=== PATIENT | female | born 1990 | race Caucasian/White ===

== ENCOUNTER 2021-11-29 10:44 | Day surgery (SDC) | payer BC ==
[2021-11-12 10:28] VITALS: BMI 27.4
--- NOTE | 2021-11-29 07:26 | P.GSHP ---
History of Present Illness H&P Date: 11/29/21 CHIEF COMPLAINT: Cholecystitis HISTORY OF PRESENT ILLNESS: The patient is a 31-year-old female who presents with history of epigastric including right upper quadrant abdominal pain. She underwent diagnostic studies for her gallbladder. Separately her clinical picture was consistent with cholecystitis. Now she presents for surgical intervention. PAST MEDICAL HISTORY: Please see list PAST SURGICAL HISTORY: Please see list MEDICATIONS: Please see list ALLERGIES: Please see list SOCIAL HISTORY: Please see list FAMILY HISTORY: Please see list REVIEW OF ORGAN SYSTEMS: CONSTITUTIONAL: No reports of fevers or chills. HEENT: Denies any troubles with the vision or hearing. ENDOCRINE: No reports of hypothyroidism. No diabetes. RESPIRATORY: No recent pneumonias. CARDIOVASCULAR: Denies chest pain or palpitations GI: No blood in stools or constipation. MUSCULOSKELETAL: Has occasional joint pain including back pain. NEURO: No seizure disorders or headaches. No recent stroke. PSYCH: No depression or suicidal ideation. GENITOURINARY: No active blood in urine. No urinary hesitancy. HEMATOLOGIC: No personal or family history of DVTs or pulmonary emboli. SKIN: No skin cancer. PHYSICAL EXAM: VITAL SIGNS: Afebrile vital signs stable GENERAL: Well-developed pleasant in no acute distress. HEENT: No scleral icterus. Extraocular movements grossly intact. Moist buccal mucosa. NECK: Supple without lymphadenopathy. CHEST: Unlabored respirations. Equal bilateral excursions. CARDIOVASCULAR: Regular rate regular rhythm rhythm. Distal 2+ pulses. ABDOMEN: Soft, nondistended. Tender along the epigastrium and right upper quadrant. MUSCULOSKELETAL: No clubbing, cyanosis, or edema. NEURO: Cranial nerves II to XII within normal limits. No focal or lateralizing signs. PSYCH: Alert and oriented to person, place and time. SKIN: Well-perfused good skin turgor. ASSESSMENT: 1. Epigastric and right upper quadrant abdominal pain 2. Chronic cholecystitis 3. Symptomatic gallstones. PLAN: 1. Will need a robotic cholecystectomy possible open. Benefits and risks were described. 2. Heparin for DVT prophylaxis 5000 units. 3. Antibiotic prophylaxis. Past Medical History Past Medical History: GERD/Reflux Additional Past Medical History / Comment(s): palpitations, "overactive gallbladder", History of Any Multi-Drug Resistant Organisms: None Reported Additional Past Surgical History / Comment(s): EGD x 2 Past Anesthesia/Blood Transfusion Reactions: Family History of Problems w/ Anesthesia Additional Past Anesthesia/Blood Transfusion Reaction / Comment(s): mom and sister PONV Past Psychological History: No Psychological Hx Reported Smoking Status: Never smoker Past Alcohol Use History: None Reported Past Drug Use History: None Reported - Past Family History Mother Family Medical History: No Reported History Medications and Allergies Home Medications Medication Instructions Recorded Confirmed Type Multivitamins, Thera [Multivitamin 1 tab PO DAILY 11/12/21 11/25/21 History (formulary)] Norethindrone-E.estradiol-Iron 1 each PO QAM 11/12/21 11/12/21 History [Aurovela 24 Fe 1 mg-20 Mcg Tab] Omeprazole [PriLOSEC] 40 mg PO DAILY 11/12/21 11/12/21 History Cholecalciferol [Vitamin D3 (25 25 mcg PO DAILY 11/25/21 11/25/21 History Mcg = 1000 Iu)] Loratadine [Alavert] 10 mg PO DAILY 11/25/21 11/25/21 History Magnesium 400 mg PO DAILY 11/25/21 11/25/21 History Allergies Allergy/AdvReac Type Severity Reaction Status Date / Time latex Allergy red Verified 11/25/21 12:14 irritated skin Penicillins Allergy Rash/Hives Verified 11/25/21 12:14
[~2021-11-29 10:44] MED LIST: ACETAMINOPHEN TAB 500 MG TAB PO STA; DEXAMETHASONE SOD PHOSPHATE 4 MG/ML 1 ML VIAL IV ONE; GABAPENTIN 300 MG CAP PO STA; HEPARIN SODIUM,PORCINE/PF 5,000 UNIT/0.5 ML SYRINGE SQ PRN; HYDROmorphone 0.5 MG/0.5 ML SYRINGE IVP PRN; INDOCYANINE GREEN 25 MG VIAL IV STA; LACTATED RINGERS 1,000 ML IV SCH; MELOXICAM 7.5 MG TAB PO SCH; ONDANSETRON 4 MG/2 ML VIAL IVP ONE; SCOPOLAMINE 1.5MG/72HR PATCH TRANSDERM STA
[2021-11-29] MEDS ORDERED: MIDAZOLAM 2 MG/2 ML VIAL IV ONE (11:40)
[2021-11-29 11:52] LABS: Basophils % (A) 0 %; Eosinophils % (A) 0 %; HGB 12.8 gm/dL (11.4-16.0); Lymphocytes # (A) 1.3 k/uL (1.0-4.8); Lymphocytes % (A) 13 %; MCH 29.1 pg (25.0-35.0); MCHC 33.8 g/dL (31.0-37.0); MCV 86.2 fL (80.0-100.0); Mean Platelet Volume 7.2; Monocytes # (A) 0.3 k/uL (0-1.0); Monocytes % (A) 3 %; Neutrophils # (A) 8.3 k/uL (1.3-7.7); Neutrophils % (A) 82 %; Platelet Count 255 k/uL (150-450); RBC 4.41 m/uL (3.80-5.40); RDW 14.1 % (11.5-15.5); WBC 10.1 k/uL (3.8-10.6)
[2021-11-29 12:05] LABS: ALT 17 U/L (4-34); AST 22 U/L (14-36); African American GFR (CKD) >90 (>60 ml/min/1.73 sqM); Albumin 4.1 g/dL (3.5-5.0); Alkaline Phosphatase 57 U/L (38-126); Anion Gap 8 mmol/L; Blood Urea Nitrogen 11 mg/dL (7-17); Calcium 9.4 mg/dL (8.4-10.2); Carbon Dioxide 23 mmol/L (22-30); Chloride 107 mmol/L (98-107); Glucose 99 mg/dL (74-99); Non-African American GFR(CKD) 85 (>60 ml/min/1.73 sqM); Sodium 138 mmol/L (137-145); Total Bilirubin 0.5 mg/dL (0.2-1.3); Total Protein 7.2 g/dL (6.3-8.2)
[2021-11-29] MEDS ORDERED: MIDAZOLAM 2 MG/2 ML VIAL ONE (12:27)
[2021-11-29] MEDS ORDERED: diphenhydrAMINE 50 MG/ML 1 ML VIAL ONE (12:27)
[2021-11-29] MEDS ORDERED: HYDROmorphone (PF) 1 MG/ML ONE (12:27)
[2021-11-29] MEDS ORDERED: DEXAMETHASONE SOD PHOSPHATE 4 MG/ML 1 ML VIAL ONE (12:27)
[2021-11-29] MEDS ORDERED: PROPOFOL 10 MG/ML 20 ML VIAL IV ONE (12:27)
[2021-11-29] MEDS ORDERED: fentaNYL (PF) 50 MCG/ML 2 ML AMP ONE (12:27)
[2021-11-29] MEDS ORDERED: LIDOCAINE 1% INJ 10MG/ML (20 ML MDV) ONE (12:27)
[2021-11-29] MEDS ORDERED: ROCURONIUM 10 MG/ML (5 ML VIAL) IV ONE (12:27)
[2021-11-29] MEDS ORDERED: INDOCYANINE GREEN 25 MG VIAL IV ONE (12:27)
[2021-11-29] MEDS ORDERED: BUPIVACAIN-EPI 0.25%-1:200,000 30 ML VIAL SQ ONE ×2 (12:41→12:46)
[2021-11-29] MEDS ORDERED: LACTATED RINGERS 1,000 ML IV ONE (12:55)
[2021-11-29 13:32] VITALS: TEMP 97.6
[2021-11-29 14:12] VITALS: RESP 16
[2021-11-29 14:58] VITALS: BP 124/82; PULSE 85
--- NOTE | 2021-12-05 11:23 | P.OP ---
Date of Procedure: 11/29/21 Description of Procedure: SURGEON: JO RODRIGUEZ MD PREOPERATIVE DIAGNOSES: 1. Chronic cholecystitis 2. Gastroesophageal reflux disease POSTOPERATIVE DIAGNOSES: 1. Chronic cholecystitis 2. Gastroesophageal reflux disease 3. Peritoneal adhesions, right upper quadrant OPERATION: 1. Robotic-assisted da Isabelle Xi laparoscopic lysis of adhesions 2. Robotic-assisted da Isabelle Xi laparoscopic cholecystectomy, multiport with FIREFLY ESTIMATED BLOOD LOSS: 5 mL. SPECIMENS REMOVED: Gallbladder. COMPLICATIONS: None. OPERATIVE FINDINGS: 1. Scarring over gallbladder with peritoneal adhesions, pericholecystic with features of chronic cholecystitis INDICATIONS: The patient is a 31-year-old female who presents with symptomatic gallstones. Robotic assisted laparoscopic approach was described. Benefits and risks of the procedure including but not limited to bleeding, infection, injury to the biliary tree was described. Informed consent was obtained. DESCRIPTION OF PROCEDURE: Patient was brought to the operating room, placed in supine position. After general induction, the abdomen had been prepped and draped in standard sterile fashion. The robotic da Isabelle XI system was primed. After a timeout protocol was performed, the patient had been prepped and draped in standard sterile fashion. The patient was injected with indocyanine green. A 5 mm 0 degrees laparoscopic trocar entry was performed along the left upper quadrant. The abdomen insufflated to 15 mmHg pressure which was tolerated well. Diagnostic laparoscopy demonstrated no injury to bowel viscera or mesentery. The liver surface was unremarkable. Next, two 8 mm robotic ports were placed along the right upper abdomen. The camera 8-mm port was maintained along the epigastrium. Another 8 mm port was placed along the left upper abdominal wall after exchanging the 5 mm port. Please note that the ports were placed at least 10 to 15 cm away from the target anatomy of the gallbladder. The robot was docked along the left lateral abdomen. The patient was repositioned in reverse Trendelenburg position. Using a grasper for arm 3, a grasper for arm 4, including hook cautery for arm 1, the robotic system was docked and primed as described. Instruments were interchanged by the assistant director of public works including hook cautery, Bovie cautery and clip appliers. I had sat at the console. The gallbladder was scarred with peritoneal adhesions. Lysis of adhesions was performed to free the gallbladder from the surrounding tissues. Next attention was brought to the infundibulum and cystic structures. The infundibulum and cystic duct were dissected free from surrounding tissues. The cystic duct was isolated. FIREFLY was used to identify the cystic artery and cystic structures. A critical view of safety was obtained. Large PLASTIC clips were used throughout the entire case. Using a clip naval aircrewman avionics, 2 clips were placed at the junction of the infundibulum and cystic duct. The cystic duct was divided between clips. Next, the cystic artery was similarly clipped and cauterized. Electro-Bovie cautery was used to remove the gallbladder from the hepatic fossa. Hemostasis was checked and found to be adequate. The robot was undocked. I re-scrubbed into the case. Using a 10 mm Endo Catch bag via the left upper quadrant incision, the specimen was removed from the abdominal cavity. All pneumoperitoneum instruments were evacuated from the abdominal cavity. The incisions were reapproximated using 4-0 Monocryl in an interrupted subcuticular fashion. Fascial defects were less than 8 mm in size. Please note along the trocar sites, local anesthetic was placed as a field block prior to insertion of all instruments. Liquid glue was applied to the skin. At the end of the procedure needle, sponge, and instrument count had been verified correct by the surgical nurse. The patient was transferred to postanesthesia care unit in stable condition. Intraoperative films were shared with the patient's family. Plan - Discharge Summary Discharge Rx Participant: Yes New Discharge Prescriptions: New Simethicone [Gas-X] 125 mg PO AC-TID PRN #20 capsule PRN Reason: Pain Ibuprofen [Motrin] 600 mg PO Q8HR PRN #30 tab PRN Reason: Pain Acetaminophen Tab [Tylenol Tab] 1,000 mg PO Q6HR PRN #30 tablet PRN Reason: Pain Continue Norethindrone-E.estradiol-Iron [Aurovela 24 Fe 1 mg-20 Mcg Tab] 1 each PO QAM Multivitamins, Thera [Multivitamin (formulary)] 1 tab PO DAILY Omeprazole [PriLOSEC] 40 mg PO DAILY Loratadine [Alavert] 10 mg PO DAILY Cholecalciferol [Vitamin D3 (25 Mcg = 1000 Iu)] 25 mcg PO DAILY Magnesium 400 mg PO DAILY Discharge Medication List Multivitamins, Thera [Multivitamin (formulary)] 1 tab PO DAILY 11/12/21 [History] Norethindrone-E.estradiol-Iron [Aurovela 24 Fe 1 mg-20 Mcg Tab] 1 each PO QAM 11/12/21 [History] Omeprazole [PriLOSEC] 40 mg PO DAILY 11/12/21 [History] Cholecalciferol [Vitamin D3 (25 Mcg = 1000 Iu)] 25 mcg PO DAILY 11/25/21 [History] Loratadine [Alavert] 10 mg PO DAILY 11/25/21 [History] Magnesium 400 mg PO DAILY 11/25/21 [History] Acetaminophen Tab [Tylenol Tab] 1,000 mg PO Q6HR PRN #30 tablet 11/29/21 [Rx] Ibuprofen [Motrin] 600 mg PO Q8HR PRN #30 tab 11/29/21 [Rx] Simethicone [Gas-X] 125 mg PO AC-TID PRN #20 capsule 11/29/21 [Rx] Follow up Appointment(s)/Referral(s): Jo Rodriguez MD [STAFF PHYSICIAN] - 12/05/21 (Telehealth available) Patient Instructions/Handouts: *[facility] - Managing Your Pain After Surgery Without Opioids, *[facility] - (Anesthesia) Discharge Instructions Outpatient Surgery, *[facility] - Scopalamine Patch Instructions, Low Fat Diet (DC), Laparoscopic Cholecystectomy (GEN) Activity/Diet/Wound Care/Special Instructions: Recommend low-fat diet for the next 2 days. No lifting over 10 pounds in 2 weeks until Dec 13, 2021. May shower. No bath tub soaks for two weeks until Dec 13, 2021. Diet as tolerated. Use Tylenol, simethicone and ibuprofen or Aleve scheduled for the next 24-48 hours for best pain relief. Use ice along incisions for today to prevent swelling. Discharge Disposition: HOME SELF-CARE
== END 2021-11-29 15:31 | disposition home or self-care (01) ==
LOC: OR 10:44
PROVIDERS: ATTEND Surgery Plastic and Reconstructive Surgery
DX: K81.1 Chronic cholecystitis (principal); K21.9 Gastro-esophageal reflux disease without esophagitis; K66.0 Peritoneal adhesions (postprocedural) (postinfection)
CPT/HCPCS: 47562; 49329; S2900; 80053; 81025; 85025; 88304

== ENCOUNTER → 2023-03-06 | Outpatient (CLI) | payer BC ==
--- NOTE | 2023-03-06 10:15 | US ---
EXAMINATION TYPE: US abdomen complete DATE OF EXAM: 03/06/2023 COMPARISON: NONE CLINICAL HISTORY: R10.84, R10.2. Increasing right upper quadrant pain TECHNIQUE: Multiple sonographic images of the abdomen are obtained. FINDINGS: EXAM MEASUREMENTS: Liver Length: 10.9 cm Gallbladder Wall: -- cm CBD: 0.4 cm Spleen: 9.4 cm Right Kidney: 10.1 x 3.9 x 4.8 cm Left Kidney: 10.4 x 4.3 x 3.8 cm DIRECTOR STYLE NOTES: Slightly limited by overlying bowel gas, mainly on the left abdomen Pancreas: wnl Liver: Subtle hypoechoic mass left lobe vs. heterogeneous tissue. 2.1 x 2.6 x 3.0cm Gallbladder: Not visualized CBD: wnl Spleen: wnl Right Kidney: Echogenic foci lower pole cortex 3mm Left Kidney: wnl Upper IVC: wnl Abd Aorta: wnl Subtle possible hypoechoic mass within the left hepatic lobe measuring 3.0 x 2.6 x 2.1 cm. There is i nternal color-flow venous region. Gallbladder is not visualized. Correlate with surgical history. Com mon bile duct is within normal limits. The spleen is within normal limits. The visualized portions of the upper IVC and abdominal aorta are within normal limits. No hydronephrosis. Nonobstructive 3 mm c alculus within the inferior pole of the right kidney. No solid mass within either kidney. IMPRESSION: 1. Subtle possible hypoechoic mass versus heterogenous tissue within the left hepatic lobe. Further evaluation with CT or MR abdomen liver mass protocol is recommended. 2. Nonobstructive right renal calculus.
--- NOTE | 2023-03-06 10:30 | US ---
EXAMINATION TYPE: US pelvic complete DATE OF EXAM: 03/06/2023 COMPARISON: NONE CLINICAL HISTORY: R10.84, R10.2. TECHNIQUE: Transabdominal sonographic images of the pelvis were acquired. Date of LMP: 02/28/2023 EXAM MEASUREMENTS: Uterus: 6.6 x 3.0 x 2.7 cm Endometrial Stripe: 0.6 cm Right Ovary: 2.9 x 2.7 x 2.4 cm Left Ovary: 2.0 x 1.9 x 1.3 cm 1. Uterus: Anteverted wnl 2. Endometrium: wnl 3. Right Ovary: wnl 4. Left Ovary: wnl 5. Bilateral Adnexa: wnl 6. Posterior cul-de-sac: wnl The anteverted uterus and endometrium are within normal limits. Both ovaries appear unremarkable. No free fluid. IMPRESSION: Unremarkable pelvic ultrasound.
== END | disposition home or self-care (01) ==
LOC: RADUSWWP 09:00
PROVIDERS: ATTEND Family Medicine
DX: N20.0 Calculus of kidney (principal); R10.2 Pelvic and perineal pain
CPT/HCPCS: 76700; 76856

== ENCOUNTER → 2023-03-13 | Outpatient (CLI) | payer BC ==
--- NOTE | 2023-03-13 10:46 | CT ---
EXAMINATION TYPE: CT abdomen wo/w con CT DLP: 1064.3 mGycm, Automated exposure control for dose reduction was used. DATE OF EXAM: 03/13/2023 9:27 AM COMPARISON: Abdominal ultrasound 03/06/2023, pelvic ultrasound 03/06/2023. CLINICAL INDICATION:Female, 32 years old with history of K76.89; RUQ PAIN TECHNIQUE: Standard CT of the abdomen was performed before and after the uneventful administration of 100 mL of Isovue-300 intravenously. Oral contrast was administered.. Delayed imaging was performed . Coronal and sagittal reformats were performed. FINDINGS: LOWER CHEST: Unremarkable ABDOMEN LIVER: There is a 3.9 x 2.2 cm sagittally arterial homogeneously enhancing lesion within segment 2 co rresponding to ultrasound. This is isoattenuating with the surrounding parenchyma on the noncontrast, portal venous, and delayed phases. GALLBLADDER AND BILE DUCTS: The gallbladder is surgically absent. PANCREAS: Unremarkable. SPLEEN: Unremarkable. ADRENAL GLANDS: Unremarkable. KIDNEYS AND URETERS: No evidence of hydronephrosis or renal calculus. The the kidneys enhance symmetr ically without suspicious focal lesion. Contrast is demonstrated within both collecting systems on th e delayed phase. STOMACH AND BOWEL: Stomach and duodenum are unremarkable. Enteric contrast reaches the distal small b owel. No evidence of bowel obstruction. PERITONEUM: No evidence of pneumoperitoneum or free fluid. VASCULATURE: No evidence of aortic aneurysm. MUSCULOSKELETAL: No acute osseous abnormalities. No aggressive osseous lesion. LYMPH NODES: No gross evidence for lymphadenopathy. SOFT TISSUE/ABDOMINAL WALL: Unremarkable IMPRESSION: 3.9 cm left hepatic lobe lesion corresponding to abdominal ultrasound with enhancement characteristic s suggestive of an adenoma. Follow-up CT in 6 months is recommended.
== END | disposition home or self-care (01) ==
LOC: RADCTMAIN 08:17
PROVIDERS: ATTEND Family Medicine
DX: K76.89 Other specified diseases of liver (principal)
CPT/HCPCS: 74170; Q9967

== ENCOUNTER → 2023-09-23 | Outpatient (CLI) | payer MEDICAID ==
--- NOTE | 2023-09-24 08:27 | CT ---
EXAMINATION TYPE: CT abdomen w con DATE OF EXAM: 09/23/2023 COMPARISON: Prior CT March 13, 2023 HISTORY: fatty tissue found on liver CT DLP: 509.8 mGycm Automated exposure control for dose reduction was used. TECHNIQUE: Helical acquisition of images was performed from the lung bases through the top of iliac crest to include entire abdomen. CONTRAST: Performed with Oral Contrast and with IV Contrast, patient injected with 100 cc mL of Isovue 300. FINDINGS: LUNG BASES: No significant abnormality is appreciated. LIVER/GB: Gallbladder not seen and suspected surgically absent. Liver is normal in size without intra hepatic ductal dilatation. No adjacent ascites. Exam is suboptimal as is not run utilizing dedicated liver protocol. In the left hepatic lobe there is a vague oval slightly hyperdense 3.6 x 2.6 cm mass series 4 image 19 that is isodense to parenchyma on delayed phase imaging. This is grossly stable in size from prior CT. PANCREAS: No significant abnormality is seen. SPLEEN: No significant abnormality is seen. ADRENALS: No significant abnormality is seen. KIDNEYS: No significant abnormality is seen. BOWEL: No significant abnormality is seen. LYMPH NODES: No significant abnormality is seen. OSSEOUS STRUCTURES: Accessory bilateral L1 ribs are thought present. There is vacuum disc phenomenon with disc space narrowing at L5-S1 level. FREE AIR: No free air is visualized. OTHER: None. IMPRESSION: Suboptimal study. Stable oval 3.6 cm solid mass in the left hepatic lobe. Differential in cludes hepatic adenoma versus FNH. Dedicated Liver protocol MRI without and with contrast can be performed to better evaluate and characterize and to exclude additional subtle smaller masses.
== END | disposition home or self-care (01) ==
LOC: RADCTMAIN 15:52
PROVIDERS: ATTEND Family Medicine
DX: K76.89 Other specified diseases of liver (principal); R16.0 Hepatomegaly, not elsewhere classified
CPT/HCPCS: 74160; Q9967

== ENCOUNTER → 2023-10-07 | Outpatient (CLI) | payer MEDICAID ==
--- NOTE | 2023-10-09 10:16 | MR ---
EXAMINATION TYPE: MR liver wo/w con DATE OF EXAM: 10/07/2023 5:35 PM CLINICAL INDICATION:Female, 33 years old with history of K76.89 OTHER SPECIFIED DISEASES OF LIVER; PH H, RUQ pain, abnormal CT. COMPARISON: CT scan abdomen from 09/23/2023 and 03/13/2023, 03/06/2023 ultrasound. TECHNIQUE: Multiplanar multi-sequence imaging was performed without contrast. Post contrast imaging was performed. Post IV contrast subtraction images were also submitted for review. IV Contrast: 8 cc Gadavist FINDINGS: LOWER CHEST: No gross irregularity. ABDOMEN Liver: No evidence for cirrhosis. Mild signal dropout on chemical shift out of phase imaging. There is a high DWI signal lesion in the left hepatic lobe which is slightly higher T2 signal compare d to background area measures roughly 3.5 x 2.5 cm there is scattered enhancement on arterial phase. On delayed imaging lesion has some persisting enhancement above background levels. Gallbladder and Bile ducts: No evidence for ductal dilation, or biliary stricture or evidence of chol edocholithiasis. The gallbladder is surgically absent. Pancreas: No ductal dilation. No evidence for solid mass. Spleen: Normal for size. Adrenal glands: Unremarkable. Kidneys: No evidence for obstructive uropathy. No suspicious renal masses. Stomach and Bowel: No evidence for bowel wall thickening or evidence for obstruction.. Peritoneum: No evidence of pneumoperitoneum or free fluid. Vasculature: No aortic aneurysm. Musculoskeletal: The osseous structures appear intact. Lymph Nodes: No gross evidence for lymphadenopathy. Abdominal wall: Fat-containing umbilical hernia. IMPRESSION: 1. Indeterminate left hepatic lobe lesion remains present and is stable in size compared to 3. Findings favor a benign etiology such as focal nodular hyperplasia versus hepatic adenoma given pa tient's age. Follow-up MRI to 12 months recommended for further evaluation for stability. 2. Mild hepatic steatosis.
== END | disposition home or self-care (01) ==
LOC: RADMRIMAIN 16:29
PROVIDERS: ATTEND Family Medicine
DX: K76.0 Fatty (change of) liver, not elsewhere classified (principal); K76.89 Other specified diseases of liver
CPT/HCPCS: 74183; A9585

== ENCOUNTER → 2024-10-12 | Outpatient (CLI) | payer MEDICAID ==
--- NOTE | 2024-10-12 21:32 | MR ---
EXAMINATION TYPE: MR liver wo/w con DATE OF EXAM: 10/12/2024 5:32 PM COMPARISON: CT scan abdomen from 10/07/2023., CT 03/13/2023 CLINICAL INDICATION: Female, 34 years old with history of HEPATIC LESION K76.9; PHH, Hepatic lesion 1 year follow up. TECHNIQUE: Multiplanar multi-sequence imaging was performed without contrast. Post contrast imaging was performed. Post IV contrast subtraction images were also submitted for review. IV Contrast: 8.5 mL Gadavist FINDINGS: LOWER CHEST: No gross irregularity. ABDOMEN Liver: No evidence for cirrhosis or steatosis. Persistent high DWI signal lesion in the left hepatic lobe which is slightly higher T2 signal compare d to background area measures possibly smaller measuring 31 x 24 mm previously 35 x 24 mm possibly du e to differences in slice selection. There is scattered enhancement on arterial phase. On delayed benigno ging lesion has some persisting enhancement above background levels. Gallbladder and Bile ducts: No evidence for ductal dilation, or biliary stricture or evidence of chol edocholithiasis. The gallbladder is surgically absent. Pancreas: No ductal dilation. No evidence for solid mass. Spleen: Normal for size. Adrenal glands: Unremarkable. Kidneys: No evidence for obstructive uropathy. No suspicious renal masses. Stomach and Bowel: No evidence for bowel wall thickening or evidence for obstruction.. Peritoneum: No evidence of pneumoperitoneum or free fluid. Vasculature: No aortic aneurysm. Musculoskeletal: The osseous structures appear intact. Lymph Nodes: No gross evidence for lymphadenopathy. Abdominal wall: Fat-containing umbilical hernia. IMPRESSION: Stable Indeterminate left hepatic lobe lesion in size compared to 10/07/2023 MRI. Findings favor a venkata ign etiology such as focal nodular hyperplasia versus hepatic adenoma given patient's age. [facility], , 10/12/2024 9:30 PM
== END | disposition home or self-care (01) ==
LOC: RADMRIMAIN 16:33
PROVIDERS: ATTEND Family Medicine
DX: K76.9 Liver disease, unspecified (principal)
CPT/HCPCS: 74183; A9585